=== PATIENT | female | born 2000 | race Hispanic/Latino ===

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

== ENCOUNTER 2022-04-06 23:23 | Emergency (ER) | payer OTHER ==
[2022-04-07] MEDS ORDERED: Acetaminophen 500 MG TAB ONE (00:14)
[2022-04-07 01:26] LABS: SARS-CoV-2 NAA Rapid Test Not Detected (NotDetected)
[2022-04-07 02:29] LABS: ALT (SGPT) 14 U/L (8-55); AST (SGOT) 15 U/L (5-30); Albumin 4.1 g/dL (3.5-5.0); Alkaline Phosphatase 116 U/L (40-100); Anion Gap 17 mmol/L (10-20); BUN (Urea Nitrogen) 17 mg/dL (8.4-21.0); Bilirubin, Total 0.4 mg/dL (0.2-1.2); Calc. Creatinine Clearance 0 mL/min (70-130); Calcium 9.4 mg/dL (7.8-10.44); Carbon Dioxide 20 mmol/L (22-29); Chloride 103 mmol/L (98-107); Estimated GFR 114; Globulin 3.4 g/dL (2.4-3.5); Glucose 105 mg/dL (70-105); Potassium 3.7 mmol/L (3.5-5.1); Protein, Total 7.5 g/dL (6.0-8.3); Sodium 136 mmol/L (136-145)
[2022-04-07 02:34] LABS: #Eosinphils 0.1 thou/uL (0.0-0.7); #Lymphocytes 1.2 thou/uL (1.20-3.40); #Monocytes 0.8 thou/uL (0.11-0.59); %Basophils 0.1 % (0.0-1.0); %Eosinophils 0.4 % (0.0-10.0); %Lymphocytes 9.1 % (28.0-48.0); %Monocytes 6.2 % (0.0-4.0); %Neutrophils 84.3 % (31.0-61.0); Mean Corpuscular Hemoglobin 28.7 pg (25.0-35.0); Mean Corpuscular Volume 84.5 fL (78.0-98.0); Mean Platelet Volume 7.1 fL (7.4-10.4); Platelet Count 232 thou/uL (130-400); RBC Distribution Width 12.8 % (11.5-14.5); Red Blood Cell (RBC) Count 4.89 mill/uL (4.00-5.20); White Blood Cell (WBC) Count 13.1 thou/uL (4.8-10.8)
== END 2022-04-07 03:20 | disposition home or self-care (01) ==
LOC: ERS 23:23
DX: O98.83 Other maternal infectious and parasitic diseases complicating the puerperium (principal); B34.9 Viral infection, unspecified; Z20.822 Contact with and (suspected) exposure to COVID-19
CPT/HCPCS: 36415; 80053; 85025; 99283